=== PATIENT | female | born 1965 | race Caucasian/White ===

== ENCOUNTER → 2016-11-03 | Outpatient (CLI) | payer MEDICARE, MEDICAID ==
--- NOTE | 2016-11-03 09:53 | RAD ---
Left knee three views INDICATION: Knee pain IMPRESSION: Small tibial spine osteophytes. No evidence of acute fracture or destructive process. There is a moderate to large suprapatellar effusion. Mild to moderate patellofemoral osteophyte formation. The fluid suggests internal derangement but is nonspecific. Electronically signed by: Matteo Hills MD 11/03/2016 9:52 AM LEG MAN
--- NOTE | 2016-11-03 09:56 | RAD ---
Pelvis one view INDICATION: Hip pain IMPRESSION: Mild osteoarthrosis of the hips. No evidence of fracture or dislocation. Mild degenerative osteoarthrosis of the sacroiliac joints. No evidence of sacral fracture. Electronically signed by: Matteo Hills MD 11/03/2016 9:55 AM PRINTER ASSISTANT
== END | disposition home or self-care (01) ==
LOC: RAD 09:01
PROVIDERS: ATTEND Orthopaedic Surgery
DX: M25.562 Pain in left knee (principal)

== ENCOUNTER 2016-11-09 14:13 | Emergency (ER) | payer MEDICARE, MEDICAID ==
[2016-11-09] MEDS ORDERED: HALOPERIDOL LACTATE INJ 5 MG/ML VIAL IM ONE (14:23)
[2016-11-09 14:25] VITALS: TEMP 98.1
[2016-11-09] MEDS ORDERED: diphenhydrAMINE HCL 50 MG/ML VIAL IM ONE (14:28)
[2016-11-09] MEDS ORDERED: LACTATED RINGERS 1,000 ML IVS ONE (15:03)
--- NOTE | 2016-11-09 15:54 | CT ---
PROCEDURE: CT of the head without contrast HISTORY: ams Indication: Same as above Comparison: 04/02/2016 Technique: CT of the head was done without intravenous contrast was done in the axial planes only. FINDINGS: There is no intracranial hemorrhage, midline shift mass effect or acute focal infarct. Motion artifact is seen on the current study If clinical concern exists regarding an acute ischemic/vascular pathology being responsible for patient's symptomatology, an MRI of the brain is more sensitive than the current study, in ruling out such a possibility. There is good alcaraz/white matter differentiation. The ventricular system is normal. The mastoid air cells are unremarkable . The paranasal sinuses are unremarkable . There is no visualization of acute fractures involving the calvarium or the skull base. IMPRESSION: There is no acute intracranial abnormality, given the limitation of motion artifact on the current study. Electronically signed by: Obinna Mayo MD 11/09/2016 3:54 PM PUBLIC FINANCE SPECIALIST
--- NOTE | 2016-11-09 17:50 | ED.PDOC ---
History of Present Illness - General Source: patient Exam Limitations: no limitations - History of Present Illness Initial Comments: The patient is a 51-year-old female with a long-standing history of bipolar disorder. The patient is brought in by police secondary to abnormal behavior with the patient. The please seen her twice earlier in the day and her behavior Becoming more and more bizarre. The patient has apparently gone off of her psychiatric medications. She does have a history history of bipolar disorder with schizophrenic-type features. The patient upon arrival here she is repeating a prayer over and over and over again. She can be distracted to answer simple simple yes or no questions fairly appropriately. She does not appear to be any distress. She does have a contusion surrounding her left eye that looks to be at least a day or 2 old. She is not reporting pain anywhere. She appears to be able to move all her extremities well. She is articulating the prayer well. I can find no evidence of any other head trauma. She said that she fell and that is how she got her black eye. The patient is not belligerent. She did resist police some. Timing/Duration: 24 hours Severity: severe Improving Factors: nothing Worsening Factors: nothing Associated Symptoms: denies symptoms <Angus Murphy - Last Filed: 11/09/16 17:48> <Kate Do - Last Filed: 11/09/16 23:19> - General Chief Complaint: Behavioral / Psych Stated Complaint: altered mental status Time Seen by Provider: 11/09/16 14:14 - History of Present Illness Allergies/Adverse Reactions: Allergies NO KNOWN ALLERGY Allergy (Verified 11/09/16 14:25) Home Medications: Ambulatory Orders Citalopram Hydrobromide [Celexa] 40 mg PO DAILY 11/01/15 Estrogens, Conjugated [Premarin] 1.25 mg PO DAILY 11/01/15 Fluticasone Prop 0.05% Nasal [Flonase Nasal [place]] 1 each KAREEN PRN 11/01/15 Gabapentin [Neurontin] 600 mg PO BID 11/01/15 Omeprazole [PriLOSEC Cap] 20 mg PO DAILY 11/01/15 Pantoprazole Sodium [Protonix] 40 mg PO DAILY 11/01/15 Topiramate [Topamax] 50 mg PO DAILY 11/01/15 Review of Systems - Review of Systems Review of Systems: 11/09/16 17:50 review of systems is limited due to patient's initial attention span. She is able to get more details at a later interview after the Haldol. Constitutional: States: malaise EENTM: States: eye pain - surrounding the left eye Respiratory: States: no symptoms reported Cardiology: States: no symptoms reported Gastrointestinal/Abdominal: States: no symptoms reported Genitourinary: States: no symptoms reported Musculoskeletal: States: no symptoms reported Skin: States: no symptoms reported Neurological: States: anxiety, other - she has also been having poor sleep Endocrine: States: no symptoms reported <Angus Murphy - Last Filed: 11/09/16 17:48> Past Medical History (General) - Patient Medical History Hx Seizures: No Hx Stroke: No Hx Dementia: No Hx Asthma: No Hx of COPD: Yes Hx Cardiac Disorders: No Hx Congestive Heart Failure: No Hx Pacemaker: No Hx Hypertension: No Hx Thyroid Disease: No Hx Diabetes: No Hx Gastroesophageal Reflux: No Hx Renal Disease: No Hx Cancer: Yes - skin Hx of HIV: No Hx Hepatitis C: No Hx MRSA: Yes - 2015 MRSA Source:: Wound - Vaccination History Hx Tetanus, Diphtheria Vaccination: Yes Hx Influenza Vaccination: Yes Hx Pneumococcal Vaccination: Yes - Social History Hx Tobacco Use: Yes Hx Chewing Tobacco Use: No Hx Alcohol Use: No Hx Substance Use: No Hx Substance Use Treatment: No Hx Depression: Yes - Female History Patient : No <Angus Murphy - Last Filed: 11/09/16 17:48> Family Medical History - Family History Mother Family History: No Known Living Status: Still Living <Angus Murphy - Last Filed: 11/09/16 17:48> Physical Exam - Physical Exam General Appearance: Alert, Anxious, No apparent distress Eye Exam: bilateral normal - periorbital hematoma on the left Ears, Nose, Throat: hearing grossly normal, normal ENT inspection - mucous membranes are mildly dry Neck: non-tender, full range of motion, supple Respiratory: chest non-tender, lungs clear, normal breath sounds, no respiratory distress, no accessory muscle use Cardiovascular/Chest: normal peripheral pulses, no edema, other - regular rate but tachycardic Peripheral Pulses: radial,right: 2+, radial,left: 2+, dorsalis pedis,right: 2+, dorsalis pedis,left: 2+ Gastrointestinal/Abdominal: non tender, soft Rectal Exam: deferred Back Exam: normal inspection, no CVA tenderness, no vertebral tenderness Extremity: normal range of motion, non-tender, normal inspection, no pedal edema , normal capillary refill Neurologic: marketing director II-XII nml as tested, no motor/sensory deficits, alert Skin Exam: normal color - with the exception of the bruising as stated above. Comments: Vital Signs - 24 hr 11/09/16 14:23 Temperature 98.1 F Pulse Rate [ 120 H Right Radial] Respiratory 22 Rate Blood Pressure 147/92 [Right Arm] O2 Sat by Pulse 96 Oximetry <Angus Murphy - Last Filed: 11/09/16 17:48> Progress - Progress Progress: 11/09/16 17:53 the patient is a 51-year-old female with a history of bipolar disorder presenting with what appears to be a manic state with schizophrenic features. She is obviously not taking care of herself. She is significantly dehydrated and in mild rhabdomyolysis. The patient is receiving IV fluids. She has responded very well to a dose of Haldol and Ativan. She will now converse fairly normally with you. She is telling us that she's been off of her medications for a month or so. I'm unsure if this is true or not. We will contact [facility] for an evaluation. We will also give her a dose of her Topamax back that we have on her previous medication list. - Results/Orders Results/Orders: Laboratory Tests 11/09/16 11/09/16 15:01 15:02 WBC 13.1 H RBC 4.59 Hgb 14.4 Hct 42.8 MCV 93.3 MCH 31.3 H MCHC 33.6 RDW 13.5 Plt Count 232 MPV 8.7 Absolute Neuts (auto) 8.60 H Absolute Lymphs (auto) 3.20 Absolute Monos (auto) 1.20 H Absolute Eos (auto) 0.00 Absolute Basos (auto) 0.10 Neutrophils % 65.5 Lymphocytes % 24.6 Monocytes % 9.2 H Eosinophils % 0.3 L Basophils % 0.4 Sodium 142 Potassium 3.9 Chloride 106 Carbon Dioxide 25 Anion Gap 14.9 BUN 11 Creatinine 0.69 BUN/Creatinine Ratio 15.9 Random Glucose 93 Serum Osmolality 282.2 Calcium 9.5 Total Bilirubin 1.2 H AST 52 H ALT 27 Alkaline Phosphatase 104 Creatine Kinase 386 H* CK-MB (CK-2) 11.4 H* CK-MB (CK-2) % 2.95 Troponin I 0.03 Serum Total Protein 7.6 Albumin 3.8 Globulin 3.8 H Albumin/Globulin Ratio 1.0 L Serum HCG, Qual Negative head CT shows no evidence of any acute pathology. Urinalysis is still pending at this time. <Angus Murphy - Last Filed: 11/09/16 17:48> - Progress Progress: 11/09/16 23:16 [facility] determined Patient was not a threat to herself or others. She was monitored for quite some time and was stable throughout the rest of her stay. Her roommate was contacted and will come to pick her up. [facility] <Kate Do - Last Filed: 11/09/16 23:19> Departure <Angus Murphy - Last Filed: 11/09/16 17:48> - Departure Time of Disposition: 23:18 Diet: resume usual diet <Kate Do - Last Filed: 11/09/16 23:19> - Departure Clinical Impression: Bipolar 1 disorder with moderate dayan, Schizophrenia, acute Disposition: Discharge to Home or Self Care Condition: Good Departure Forms: ED Discharge - Pt. Copy, Patient Portal Self Enrollment Instructions: DI for Bipolar Disorder Referrals: Michael Murphy MD [Primary Care Provider] - 1-5 Days Home Medications: Ambulatory Orders Citalopram Hydrobromide [Celexa] 40 mg PO DAILY 11/01/15 Estrogens, Conjugated [Premarin] 1.25 mg PO DAILY 11/01/15 Fluticasone Prop 0.05% Nasal [Flonase Nasal [place]] 1 each KAREEN PRN 11/01/15 Gabapentin [Neurontin] 600 mg PO BID 11/01/15 Omeprazole [PriLOSEC Cap] 20 mg PO DAILY 11/01/15 Pantoprazole Sodium [Protonix] 40 mg PO DAILY 11/01/15 Topiramate [Topamax] 50 mg PO DAILY 11/01/15 Additional Instructions: Arrange appointment with [facility].
[2016-11-09] MEDS ORDERED: TOPIRAMATE 25 MG TAB PO ONE (18:12)
[2016-11-09 23:46] VITALS: BP 146/81; O2SAT 96
== END 2016-11-09 23:45 | disposition home or self-care (01) ==
LOC: ER 14:13
DX: F31.2 Bipolar disorder, current episode manic severe with psychotic features (principal); F23 Brief psychotic disorder; Z85.828 Personal history of other malignant neoplasm of skin; Z86.14 Personal history of Methicillin resistant Staphylococcus aureus infection; Z87.891 Personal history of nicotine dependence; Z91.14 Patient's other noncompliance with medication regimen; E86.0 Dehydration; M62.82 Rhabdomyolysis
CPT/HCPCS: 36415; 70450; 80053; 80307; 82550; 82553; 84484; 84703; 85025; J1200; J1630; J2060; J7120

== ENCOUNTER → 2016-11-12 | Outpatient (CLI) | payer MEDICARE, MEDICAID ==
--- NOTE | 2016-11-12 09:07 | RAD ---
EXAM DESCRIPTION: Knee,Right Complete CLINICAL HISTORY: PAIN IN RIGHT KNEE FINDINGS/ IMPRESSION: No fracture or focal osteochondral lesion. Small tricompartmental joint line osteophytes. No joint effusion. Electronically signed by: Michael Crowder MD 11/12/2016 9:06 AM CORSET MAKER
== END | disposition home or self-care (01) ==
LOC: RAD 08:12
PROVIDERS: ATTEND Family Medicine
DX: M25.561 Pain in right knee (principal)

== ENCOUNTER 2016-11-16 17:32 | Emergency (ER) | payer MEDICARE, MEDICAID | END 2016-11-16 18:17 | disposition left against medical advice (07) | LOC: ER 17:32 | DX: Z53.21 Procedure and treatment not carried out due to patient leaving prior to being seen by health care provider (principal) ==

== ENCOUNTER 2016-11-16 22:06 | Emergency (ER) | payer MEDICARE, MEDICAID ==
[2016-11-16 23:30] VITALS: TEMP 97.2; O2SAT 96
[2016-11-17] MEDS ORDERED: LIDOCAINE 1% 10 ML VIAL INJ ONE (00:45)
[2016-11-17] MEDS ORDERED: BACITRACIN-POLYMYXIN B OINT U/D PACK TOP ONE (00:52)
--- NOTE | 2016-11-17 01:02 | ED.PDOC ---
History of Present Illness - General Chief Complaint: Skin/Abrasion/Tear Stated Complaint: abcess to rt axilla Time Seen by Provider: 11/17/16 00:59 Source: patient Exam Limitations: no limitations - History of Present Illness Initial Comments: Jc 51 y/o female had worsening painful swelling on her right axilla started 3 days ago. Timing/Duration: getting worse - 72 hours, other Severity: moderate Location: extremities Improving Factors: nothing Worsening Factors: movement Associated Symptoms: denies symptoms Allergies/Adverse Reactions: Allergies NO KNOWN ALLERGY Allergy (Verified 11/09/16 14:25) Home Medications: Ambulatory Orders Citalopram Hydrobromide [Celexa] 40 mg PO DAILY 11/01/15 Estrogens, Conjugated [Premarin] 1.25 mg PO DAILY 11/01/15 Fluticasone Prop 0.05% Nasal [Flonase Nasal [place]] 1 each KAREEN PRN 11/01/15 Gabapentin [Neurontin] 600 mg PO BID 11/01/15 Omeprazole [PriLOSEC Cap] 20 mg PO DAILY 11/01/15 Pantoprazole Sodium [Protonix] 40 mg PO DAILY 11/01/15 Topiramate [Topamax] 50 mg PO DAILY 11/01/15 Clindamycin HCl 300 mg PO BID #30 cap 11/17/16 Review of Systems - Review of Systems Constitutional: States: no symptoms reported EENTM: States: no symptoms reported Respiratory: States: no symptoms reported Cardiology: States: no symptoms reported Gastrointestinal/Abdominal: States: no symptoms reported Genitourinary: States: no symptoms reported Musculoskeletal: States: no symptoms reported Skin: States: see HPI Neurological: States: no symptoms reported Endocrine: States: no symptoms reported Hematologic/Lymphatic: States: no symptoms reported Past Medical History (General) - Patient Medical History Hx Seizures: No Hx Stroke: No Hx Dementia: No Hx Asthma: No Hx of COPD: Yes Hx Cardiac Disorders: No Hx Congestive Heart Failure: No Hx Pacemaker: No Hx Hypertension: No Hx Thyroid Disease: No Hx Diabetes: No Hx Gastroesophageal Reflux: No Hx Renal Disease: No Hx Cancer: Yes - skin, cervical Hx of HIV: No Hx Hepatitis C: Yes Hx MRSA: Yes - 2014 MRSA Source:: Wound Surgical History: colectomy, other - hysterectomy - Vaccination History Hx Tetanus, Diphtheria Vaccination: Yes Hx Influenza Vaccination: Yes Hx Pneumococcal Vaccination: Yes - Social History Hx Tobacco Use: Yes Hx Chewing Tobacco Use: No Hx Alcohol Use: No 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 Hx Substance Use Treatment: Yes Hx Depression: Yes - Female History Patient is a Female of Child Bearing Age (10 -59 yrs old): No Patient : No Family Medical History - Family History Mother Family History: No Known Living Status: Still Living Hx Family Hypertension: Yes Hx Family Cancer: Yes - multiple family member with melanoma Physical Exam - Physical Exam General Appearance: Alert, No apparent distress Eyes, Ears, Nose, Throat Exam: PERRL/EOMI, normal ENT inspection, pharynx normal Neck: non-tender, full range of motion, supple, normal inspection Cardiovascular/Chest: normal peripheral pulses, regular rate, rhythm, no edema Respiratory: chest non-tender, lungs clear, normal breath sounds, no respiratory distress Gastrointestinal/Abdominal: normal bowel sounds, non tender, soft Extremity: normal range of motion, non-tender, normal inspection Neurologic: no motor/sensory deficits, alert, oriented x 3 Skin Exam: warm/dry, normal color Skin Problem Location: other - axilla right Skin Character: abscess - right axilla, erythema, swelling - 3cmx2.5cm, tenderness Procedures - Incision and Drainage #1 Site: right axilla Procedure and Prep: betadine prep, sterile drapes applied, sterile dressings applied, irrigated, pus drained Blade Size: 11 Departure - Departure Clinical Impression: Axillary abscess Time of Disposition: 01:08 Disposition: Discharge to Home or Self Care Condition: Good Departure Forms: ED Discharge - Pt. Copy, Patient Portal Self Enrollment Instructions: DI for Incision and Drainage of a Skin Abscess, DI for Skin Abscess Referrals: Michael Murphy MD [Primary Care Provider] - 1-2 Weeks Prescriptions: Clindamycin HCl 300 mg PO BID #30 cap Home Medications: Ambulatory Orders Citalopram Hydrobromide [Celexa] 40 mg PO DAILY 11/01/15 Estrogens, Conjugated [Premarin] 1.25 mg PO DAILY 11/01/15 Fluticasone Prop 0.05% Nasal [Flonase Nasal [place]] 1 each KAREEN PRN 11/01/15 Gabapentin [Neurontin] 600 mg PO BID 11/01/15 Omeprazole [PriLOSEC Cap] 20 mg PO DAILY 11/01/15 Pantoprazole Sodium [Protonix] 40 mg PO DAILY 11/01/15 Topiramate [Topamax] 50 mg PO DAILY 11/01/15 Clindamycin HCl 300 mg PO BID #30 cap 11/17/16
[2016-11-17] MEDS ORDERED: CLINDAMYCIN HCL CAP 150 MG CAP PO ONE (01:11)
[2016-11-17 01:38] VITALS: BP 112/68
== END 2016-11-17 01:40 | disposition home or self-care (01) ==
LOC: ER 22:06
DX: L02.411 Cutaneous abscess of right axilla (principal); J44.9 Chronic obstructive pulmonary disease, unspecified; Z87.891 Personal history of nicotine dependence; Z87.898 Personal history of other specified conditions; Z79.899 Other long term (current) drug therapy; Z85.41 Personal history of malignant neoplasm of cervix uteri; Z86.19 Personal history of other infectious and parasitic diseases; Z86.14 Personal history of Methicillin resistant Staphylococcus aureus infection

== ENCOUNTER 2016-11-18 11:49 | Emergency (ER) | payer MEDICARE, MEDICAID ==
[2016-11-18 12:11] VITALS: TEMP 98
--- NOTE | 2016-11-18 12:39 | ED.PDOC ---
History of Present Illness - General Chief Complaint: Abdominal Pain Stated Complaint: abdominal pain Time Seen by Provider: 11/18/16 12:15 Source: patient Exam Limitations: no limitations - History of Present Illness Initial Comments: Patient presents complaining of unusual taste in her mouth and abdominal pain. She says the taste is sour. She has recently been treated for constipation after not having a bowel movement for 5 days. She had a bowel movement today. She says her appetite has been fine but has not eaten today. Abdominal pain is RUQ with no radiation. Intermittent. Cramping in nature. Started today. Has had previous episodes. She is unsure if it is associated with bowel movements. Mild nausea with no vomiting. No urinary complaints. Timing/Duration: 4-6 hours Severity: mild Improving Factors: nothing Worsening Factors: nothing Associated Symptoms: denies symptoms Allergies/Adverse Reactions: Allergies NO KNOWN ALLERGY Allergy (Verified 11/18/16 12:11) Home Medications: Ambulatory Orders Citalopram Hydrobromide [Celexa] 40 mg PO DAILY 11/01/15 Estrogens, Conjugated [Premarin] 1.25 mg PO DAILY 11/01/15 Fluticasone Prop 0.05% Nasal [Flonase Nasal [place]] 1 each KAREEN PRN 11/01/15 Gabapentin [Neurontin] 600 mg PO BID 11/01/15 Omeprazole [PriLOSEC Cap] 20 mg PO DAILY 11/01/15 Pantoprazole Sodium [Protonix] 40 mg PO DAILY 11/01/15 Topiramate [Topamax] 50 mg PO DAILY 11/01/15 Clindamycin HCl 300 mg PO BID #30 cap 11/17/16 Review of Systems - Review of Systems Constitutional: States: no symptoms reported EENTM: States: no symptoms reported Respiratory: States: no symptoms reported Cardiology: States: no symptoms reported Gastrointestinal/Abdominal: States: see HPI Genitourinary: States: no symptoms reported Musculoskeletal: States: no symptoms reported Skin: States: no symptoms reported Neurological: States: no symptoms reported Endocrine: States: no symptoms reported Hematologic/Lymphatic: States: no symptoms reported Past Medical History (General) - Patient Medical History Hx Seizures: No Hx Stroke: No Hx Dementia: No Hx Asthma: No Hx of COPD: Yes Hx Cardiac Disorders: No Hx Congestive Heart Failure: No Hx Pacemaker: No Hx Hypertension: No Hx Thyroid Disease: No Hx Diabetes: No Hx Gastroesophageal Reflux: No Hx Renal Disease: No Hx Cancer: Yes - skin, cervical Hx of HIV: No Hx Hepatitis C: Yes Hx MRSA: Yes - 2014 MRSA Source:: Wound Surgical History: appendectomy, Hysterectomy - Vaccination History Hx Tetanus, Diphtheria Vaccination: Yes Hx Influenza Vaccination: Yes Hx Pneumococcal Vaccination: Yes - Social History Hx Tobacco Use: Yes Hx Chewing Tobacco Use: No Hx Alcohol Use: No 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 Hx Substance Use Treatment: Yes Hx Depression: Yes - Activities of Daily Living Hospice Agency (if applicable):: None - Female History Patient is a Female of Child Bearing Age (10 -59 yrs old): No Patient : No Family Medical History - Family History Mother Family History: No Known Living Status: Still Living Hx Family Hypertension: Yes Hx Family Cancer: Yes - multiple family member with melanoma Physical Exam - Physical Exam General Appearance: Alert Eye Exam: bilateral normal Ears, Nose, Throat: normal ENT inspection Neck: non-tender, full range of motion, supple Respiratory: lungs clear Cardiovascular/Chest: regular rate, rhythm Gastrointestinal/Abdominal: normal bowel sounds, non tender, soft Back Exam: no CVA tenderness Extremity: normal range of motion, non-tender, normal inspection Skin Exam: normal color Lymphatic: no adenopathy Progress - Progress Progress: 11/18/16 15:[address] abdomen/pelvis was unremarkable and suggestive of a diarrheal state. Laboratory Tests 11/18/16 11/18/16 13:00 14:40 WBC 12.6 H RBC 5.08 Hgb 16.1 H Hct 47.8 H MCV 94.0 MCH 31.6 H MCHC 33.8 RDW 13.4 Plt Count 298 MPV 8.7 Absolute Neuts (auto) 9.30 H Absolute Lymphs (auto) 2.50 Absolute Monos (auto) 0.60 Absolute Eos (auto) 0.10 Absolute Basos (auto) 0.00 Neutrophils % 73.6 Lymphocytes % 20.3 Monocytes % 5.1 Eosinophils % 0.8 L Basophils % 0.2 Sodium 140 Potassium 4.1 Chloride 105 Carbon Dioxide 27 Anion Gap 12.1 BUN 10 Creatinine 0.58 L BUN/Creatinine Ratio 17.2 Random Glucose 114 H Serum Osmolality 279.3 Lactic Acid 0.9 Calcium 9.7 Total Bilirubin 0.9 AST 53 H ALT 36 Alkaline Phosphatase 118 Creatine Kinase 97 CK-MB (CK-2) 4.8 H* CK-MB (CK-2) % Not Reportable Troponin I < 0.02 B-Natriuretic Peptide 17.1 Serum Total Protein 8.6 H Albumin 4.2 Globulin 4.4 H Albumin/Globulin Ratio 1.0 L Lipase 23 Urine Color Yellow Urine Appearance Sl cloudy Urine pH 6.0 Ur Specific [place] 1.010 Urine Protein Negative Urine Glucose (UA) Negative Urine Ketones Negative Urine Blood Negative Urine Nitrite Negative Urine Bilirubin Negative Urine Urobilinogen 0.2 Ur Leukocyte Esterase Negative Urine RBC 0 Urine WBC 0 Ur Epithelial Cells 0 Urine Bacteria 0 11/18/16 15:36 Likely diarrhea due to acute treatment of her constipation. Recommend increasing oral fluids. Departure - Departure Clinical Impression: Diarrhea Disposition: Discharge to Home or Self Care Condition: Good Departure Forms: ED Discharge - Pt. Copy, Patient Portal Self Enrollment Instructions: DI for Abdominal Pain-Adult Diet: resume usual diet Activity: increase activity as tolerated Home Medications: Ambulatory Orders Citalopram Hydrobromide [Celexa] 40 mg PO DAILY 11/01/15 Estrogens, Conjugated [Premarin] 1.25 mg PO DAILY 11/01/15 Fluticasone Prop 0.05% Nasal [Flonase Nasal [place]] 1 each KAREEN PRN 11/01/15 Gabapentin [Neurontin] 600 mg PO BID 11/01/15 Omeprazole [PriLOSEC Cap] 20 mg PO DAILY 11/01/15 Pantoprazole Sodium [Protonix] 40 mg PO DAILY 11/01/15 Topiramate [Topamax] 50 mg PO DAILY 11/01/15 Clindamycin HCl 300 mg PO BID #30 cap 11/17/16 Additional Instructions: Increase oral fluids.
--- NOTE | 2016-11-18 14:19 | CT ---
Study: CT abdomen and pelvis. Indication: abdominal pain Technique: Venous phase CT imaging of the abdomen and pelvis obtained after intravenous administration of contrast. Comparison: None. Findings: Gallbladder is distended. No radiopaque stones. Lower chest, liver, pancreas, adrenal glands, kidneys, bladder unremarkable. Uterus and ovaries are either small or surgically absent. Prior splenectomy. Nonvisualization appendix. Scattered fluid noted throughout the stomach, small bowel, and colon without definitive site of obstruction or significant dilatation of the bowel. No free fluid. No free air. No pathologically enlarged abdominal or pelvic lymphadenopathy. Atherosclerosis abdominal aorta. Degenerative changes of the spine noted. Impression: No CT evidence of acute abdominal or pelvic process. Distended gallbladder. Right upper quadrant sonogram could better evaluate as clinically indicated. Fluid noted throughout the bowel which can be seen with a diarrheal state. No sign of obstruction. Additional findings as above. Electronically signed by: Alireza Canales MD 11/18/2016 2:18 PM CDT
[2016-11-18 14:34] VITALS: O2SAT 95
[2016-11-18 15:46] VITALS: BP 115/70
== END 2016-11-18 15:46 | disposition home or self-care (01) ==
LOC: ER 11:49
DX: R19.7 Diarrhea, unspecified (principal); J44.9 Chronic obstructive pulmonary disease, unspecified; F32.9 Major depressive disorder, single episode, unspecified; Z87.891 Personal history of nicotine dependence; Z87.898 Personal history of other specified conditions; Z79.899 Other long term (current) drug therapy; Z85.41 Personal history of malignant neoplasm of cervix uteri; Z85.828 Personal history of other malignant neoplasm of skin; Z86.19 Personal history of other infectious and parasitic diseases; Z86.14 Personal history of Methicillin resistant Staphylococcus aureus infection

== ENCOUNTER → 2016-11-28 | Outpatient (CLI) | payer MEDICARE, MEDICAID | END | disposition home or self-care (01) | LOC: GMAM 13:26 | PROVIDERS: ATTEND Family Medicine | DX: R60.0 Localized edema (principal); F31.12 Bipolar disorder, current episode manic without psychotic features, moderate ==

== ENCOUNTER → 2016-12-17 | Outpatient (CLI) | payer MEDICARE, MEDICAID | LOC: LAB.O 13:10 | PROVIDERS: ATTEND Internal Medicine Gastroenterology | DX: B18.2 Chronic viral hepatitis C (principal); R74.0 Nonspecific elevation of levels of transaminase and lactic acid dehydrogenase [LDH] ==

== ENCOUNTER → 2016-12-29 | Outpatient (CLI) | payer MEDICARE, MEDICAID ==
--- NOTE | 2016-12-29 11:59 | US ---
EXAM DESCRIPTION: Abdomen,Complete CLINICAL HISTORY: CHRONIC HEP C COMPARISON: None available. FINDINGS: Aorta: Nonaneurysmal. IVC: Visualized portions normal. Ascites: None. Pancreas: Partially obscured by overlying bowel gas but visualized portions normal. Liver: The liver appears slightly heterogeneous, but there is no mass, hepatomegaly or biliary duct dilation. Physiologic flow is noted in the main portal vein. Gallbladder/Common Duct: There is no gallstone, gallbladder wall thickening or pericholecystic fluid. There is a questionable 3 or 4 mm gallbladder polyp. The common duct is not dilated, measuring 5 mm diameter at the buddy habitus. Right Kidney: No stones, hydronephrosis, atrophy or mass. Spleen: The spleen is not identified and is, by history, surgically absent. Left Kidney: No stones, hydronephrosis, atrophy or mass. IMPRESSION: Slightly heterogeneous appearance of the liver, but no liver mass, ascites or other complication related to provided history of chronic hepatitis C. 3 or 4 mm gallbladder polyp of questionable clinical significance, otherwise unremarkable exam. Electronically signed by: Luis Miguel Ha MD 12/29/2016 11:58 AM CDT
== END | disposition home or self-care (01) ==
LOC: US 08:07
PROVIDERS: ATTEND Internal Medicine Gastroenterology
DX: B18.2 Chronic viral hepatitis C (principal)

== ENCOUNTER 2017-01-10 10:02 | Emergency (ER) | payer MEDICARE, MEDICAID ==
[2017-01-10 10:14] VITALS: BP 113/86; TEMP 97.5; O2SAT 96
[2017-01-10] MEDS ORDERED: SULFA/TRIMETH 800/160 (DS) TAB 1 EA TAB PO ONE (10:15)
--- NOTE | 2017-01-10 10:18 | ED.PDOC ---
History of Present Illness - General Chief Complaint: Skin/Abrasion/Tear Stated Complaint: sore to top of right hand Time Seen by Provider: 01/10/17 10:08 Source: patient, RN notes reviewed, Vital Signs reviewed Exam Limitations: no limitations - History of Present Illness Initial Comments: Patient reports sore on the back of her R hand that started as a pimple yesterday. She tried draining it with a needle. Today the pimple has expanded and she had redness and pain around the site. Reports multiple infections with Staph in the past. No fever or chills. Pain with movement of fingers/hand but has full range of motion. Timing/Duration: yesterday Severity: mild Location: hands Improving Factors: nothing Worsening Factors: movement Associated Symptoms: blisters Allergies/Adverse Reactions: Allergies NO KNOWN ALLERGY Allergy (Verified 11/18/16 12:11) Home Medications: Ambulatory Orders Citalopram Hydrobromide [Celexa] 40 mg PO DAILY 11/01/15 Estrogens, Conjugated [Premarin] 1.25 mg PO DAILY 11/01/15 Celecoxib [CeleBREX] 100 mg PO BID 01/10/17 HYDROcodone 7.5MG/APAP 325MG [[place] 7.5/325] 1 tab PO PRN 01/10/17 Ondansetron [Zofran Odt] 4 mg PO PRN 01/10/17 Sulfa/Trimeth 800/160 (Ds) Tab [Bactrim DS Tab] 1 ea PO BID #14 tab 01/10/17 Tizanidine HCl [Zanaflex] 4 mg PO TID 01/10/17 Review of Systems - Review of Systems Constitutional: States: no symptoms reported EENTM: States: no symptoms reported Respiratory: States: no symptoms reported Cardiology: States: no symptoms reported Gastrointestinal/Abdominal: States: no symptoms reported Skin: States: see HPI Neurological: States: no symptoms reported All other Systems: No Change from Baseline Past Medical History (General) - Patient Medical History Hx Seizures: No Hx Stroke: No Hx Dementia: No Hx Asthma: No Hx of COPD: Yes Hx Cardiac Disorders: No Hx Congestive Heart Failure: No Hx Pacemaker: No Hx Hypertension: No Hx Thyroid Disease: No Hx Diabetes: No Hx Gastroesophageal Reflux: No Hx Renal Disease: No Hx Cancer: Yes - skin, cervical Hx of HIV: No Hx Hepatitis C: Yes Hx MRSA: Yes - 2014 MRSA Source:: Wound - Vaccination History Hx Tetanus, Diphtheria Vaccination: Yes Hx Influenza Vaccination: Yes Hx Pneumococcal Vaccination: Yes - Social History Hx Tobacco Use: Yes Hx Chewing Tobacco Use: No Hx Alcohol Use: No 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 Hx Substance Use Treatment: Yes Hx Depression: Yes - Female History Patient : No Family Medical History - Family History Mother Family History: No Known Living Status: Still Living Hx Family Hypertension: Yes Hx Family Cancer: Yes - multiple family member with melanoma Physical Exam - Physical Exam General Appearance: Alert, Comfortable, No apparent distress, Well Developed, Well Groomed, Well Hydrated, Well Nourished Extremity: normal range of motion, non-tender, normal inspection Neurologic: no motor/sensory deficits, alert, normal mood/affect, oriented x 3 Skin Exam: warm/dry, normal color Skin Problem Location: upper extremities - Dorsum of R hand Skin Character: abscess, drainage - purulent drainage, erythema, tenderness, warm Comments: Vital Signs - 24 hr 01/10/17 10:10 Temperature 97.5 F L Pulse Rate [ 74 Left Brachial] Respiratory 16 Rate Blood Pressure 113/86 [Left Arm] O2 Sat by Pulse 96 Oximetry Departure - Departure Clinical Impression: Cellulitis Qualifiers: Site of cellulitis: extremity Site of cellulitis of extremity: upper extremity Laterality: right Qualified Code(s): L03.113 - Cellulitis of right upper limb Time of Disposition: 10:21 Disposition: Discharge to Home or Self Care Condition: Good Departure Forms: ED Discharge - Pt. Copy, Patient Portal Self Enrollment Instructions: DI for Cellulitis -- Adult Diet: resume usual diet Activity: increase activity as tolerated Referrals: Michael Murphy MD [Primary Care Provider] - 1-2 Weeks Prescriptions: Sulfa/Trimeth 800/160 (Ds) Tab [Bactrim DS Tab] 1 ea PO BID #14 tab Home Medications: Ambulatory Orders Citalopram Hydrobromide [Celexa] 40 mg PO DAILY 11/01/15 Estrogens, Conjugated [Premarin] 1.25 mg PO DAILY 11/01/15 Celecoxib [CeleBREX] 100 mg PO BID 01/10/17 HYDROcodone 7.5MG/APAP 325MG [[place] 7.5/325] 1 tab PO PRN 01/10/17 Ondansetron [Zofran Odt] 4 mg PO PRN 01/10/17 Sulfa/Trimeth 800/160 (Ds) Tab [Bactrim DS Tab] 1 ea PO BID #14 tab 01/10/17 Tizanidine HCl [Zanaflex] 4 mg PO TID 01/10/17 Additional Instructions: Hot compresses 3-5X/day
== END 2017-01-10 10:32 | disposition home or self-care (01) ==
LOC: ER 10:02
DX: L03.113 Cellulitis of right upper limb (principal); J44.9 Chronic obstructive pulmonary disease, unspecified; B19.20 Unspecified viral hepatitis C without hepatic coma; Z86.14 Personal history of Methicillin resistant Staphylococcus aureus infection; Z85.828 Personal history of other malignant neoplasm of skin; Z79.899 Other long term (current) drug therapy

== ENCOUNTER → 2017-02-26 | Outpatient (CLI) | payer MEDICARE, MEDICAID ==
--- NOTE | 2017-02-27 06:06 | CT ---
Procedure: CT ABDOMEN PELVIS WITHOUT IV CONTRAST Exam Date: 02/26/2017 Ordering Provider: Dave Estes Clinical Indication: Generalized abdominal pain Comparison: 11/18/2016 TECHNIQUE: Unenhanced 5 mm images were taken through the abdomen and pelvis without the administration of oral contrast material. Coronal and sagittal reformatted images were generated. This exam was performed according to our departmental dose optimization program which includes use of automated exposure control, adjustment of the mA and/or kV according to patient size and/or use of iterative reconstruction technique. FINDINGS: Lower chest: Nonacute Abdomen: Liver and biliary system: No gross liver lesions on this noncontrast examination. No biliary ductal dilatation. No calcified gallstones. Spleen: Surgically absent Pancreas: Unremarkable noncontrast appearance Adrenal glands: Unremarkable Kidneys: Unremarkable noncontrast appearance. No hydronephrosis in either kidney. Lymph nodes: No lymphadenopathy Retroperitoneum, peritoneal cavity, abdominal wall : No ascites. No free intraperitoneal air. Vessels: No abdominal aortic aneurysm. Pelvis: Lymph nodes: No lymphadenopathy Peritoneal cavity: No pelvic free fluid Bowel: No bowel obstruction. Appendix is not visualized. No secondary findings to suggest acute appendicitis. No bowel wall thickening. There are a few nonspecific air-fluid levels in the nondistended small bowel. Moderate to large stool burden in the proximal colon. Bladder: Unremarkable Pelvic organs: Prior hysterectomy. Bones: Nonacute. IMPRESSION: 1. No acute abnormalities in the abdomen or pelvis. 2. Moderate to large stool burden in the proximal colon. Electronically signed by: Last Shah MD 02/27/2017 6:05 AM CDT
== END | disposition home or self-care (01) ==
LOC: CT 09:12
PROVIDERS: ATTEND Internal Medicine Gastroenterology
DX: R10.84 Generalized abdominal pain (principal)

== ENCOUNTER → 2017-03-18 | Outpatient (CLI) | payer MEDICARE, MEDICAID | END | disposition home or self-care (01) | LOC: LAB.O 09:13 | PROVIDERS: ATTEND Internal Medicine Gastroenterology | DX: B18.2 Chronic viral hepatitis C (principal) ==

== ENCOUNTER → 2017-04-07 | Outpatient (CLI) | payer MEDICARE, MEDICAID | END | disposition home or self-care (01) | LOC: LAB 07:11 | PROVIDERS: ATTEND Internal Medicine Gastroenterology | DX: B18.2 Chronic viral hepatitis C (principal); R60.0 Localized edema; R73.09 Other abnormal glucose; Z13.6 Encounter for screening for cardiovascular disorders ==

== ENCOUNTER 2017-04-08 06:00 | Day surgery (SDC) | payer MEDICARE, MEDICAID ==
[2017-04-08] MEDS ORDERED: LACTATED RINGERS 1,000 ML ONE (06:05)
[2017-04-08 08:36] VITALS: O2SAT 100
--- NOTE | 2017-04-08 09:43 | OP ---
DATE OF PROCEDURE: 04/08/17 PREPROCEDURE DIAGNOSIS: 1. Average risk colorectal cancer screening. POSTPROCEDURE DIAGNOSIS: 1. Normal colon. PROCEDURE: 1. Colonoscopy. SURGEON: Dave Estes MD. SEDATION: Monitored anesthesia care. ESTIMATED BLOOD LOSS: 0 mL. PROCEDURE: Informed consent was obtained prior to sedation. The preprocedure cardiopulmonary assessment was satisfactory. The patient was brought to the Endoscopy Suite and placed in the left lateral decubitus position. The patient was then sedated by the anesthesia team. Digital rectal exam revealed no abnormalities. The tip of the Olympus colonoscope was inserted into the rectum and advanced under direct visualization to the cecum as identified by the presence of the appendiceal orifice and ileocecal valve. Preparation of the colon was adequate. Upon reaching the cecum, the endoscope was slowly withdrawn from the patient with careful attention paid to the entire colonic mucosa for the identification of any flat or small polyps. The entire colon appeared normal and there was no evidence of polyps. Retroflexed view of the rectum revealed no abnormalities. The endoscope was then withdrawn from the patient and the procedure terminated. RECOMMENDATION: 1. Discharge the patient home with escort. 2. Advance to regular diet. 3. Continue present medications. 4. Repeat colonoscopy in 10 years for screening purposes. [id number]
[2017-04-08] MEDS ORDERED: PROPOFOL 200 MG/20 ML VIAL IV ONE (10:00)
[2017-04-08 14:12] VITALS: TEMP 97
[2017-04-08 14:13] VITALS: BP 128/90
== END 2017-04-08 10:05 | disposition home or self-care (01) ==
LOC: AMB 06:00
PROVIDERS: ATTEND Internal Medicine Gastroenterology
DX: Z12.11 Encounter for screening for malignant neoplasm of colon (principal); B19.20 Unspecified viral hepatitis C without hepatic coma; E66.9 Obesity, unspecified; K21.9 Gastro-esophageal reflux disease without esophagitis; F17.210 Nicotine dependence, cigarettes, uncomplicated; Z68.29 Body mass index [BMI] 29.0-29.9, adult; Z79.899 Other long term (current) drug therapy
CPT/HCPCS: 00810; G0121; J3490; J7120

== ENCOUNTER → 2017-04-23 | Outpatient (CLI) | payer MEDICARE, MEDICAID | END | disposition home or self-care (01) | LOC: GMAM 16:25 | PROVIDERS: ATTEND Family Medicine | DX: Z79.899 Other long term (current) drug therapy (principal) ==

== ENCOUNTER → 2017-06-12 | Outpatient (CLI) | payer MEDICARE, MEDICAID | END | disposition home or self-care (01) | LOC: LAB.O 11:49 | PROVIDERS: ATTEND Internal Medicine Gastroenterology | DX: B18.2 Chronic viral hepatitis C (principal) ==

== ENCOUNTER → 2017-07-28 | Outpatient (CLI) | payer MEDICARE, MEDICAID ==
--- NOTE | 2017-07-30 02:15 | RAD ---
Examination: XR SHOULDER 2 OR MORE VIEWS dated 07/28/2017 8:52 AM SLACKMAN History: RIGHT SHOULDER PAIN Comparison: None Technique: Four views of the right shoulder FINDINGS AND IMPRESSION: There is no acute fracture or dislocation of the right shoulder. There are minimal degenerative changes of the glenohumeral joint. The acromioclavicular joint is unremarkable. The partially visualized right lung is clear. Electronically signed by: Michael Stanley MD 07/30/2017 2:13 AM SLACKMAN
== END | disposition home or self-care (01) ==
LOC: RAD 08:49
PROVIDERS: ATTEND Orthopaedic Surgery
DX: M25.511 Pain in right shoulder (principal)

== ENCOUNTER → 2017-09-22 | Outpatient (CLI) | payer MEDICARE, MEDICAID ==
--- NOTE | 2017-09-22 11:12 | MRI ---
Study: MRI of the Right Shoulder. Indication: SHOULDER JOINT PAIN Technique: Multiplanar, multi sequence MRI of the right shoulder was obtained without intravenous contrast. Comparison: None. Findings: Moderate hypertrophic AC joint osteoarthritis. Mild type II acromion with mild lateral downsloping. Trace subacromial/subdeltoid bursal fluid. Supraspinatus and infraspinatus tendinosis with subtle low-grade articular tearing throughout the insertional and critical zone fibers of the anterior and mid infraspinatus tendon. The involved area measures approximately 8 mm AP by 10 mm transverse and involves up to 40% expected tendon thickness. No full-thickness tear. No tendon retraction. Subscapularis and teres minor tendons intact. Rotator cuff musculature normal without atrophy, fatty infiltration, or intramuscular edema. Long head biceps tendon intact. Circumferential labral truncation/degeneration, most pronounced posteriorly. Minimal glenohumeral joint osteoarthritis. No acute fracture. Impression: Supraspinatus and infraspinatus tendinosis with subtle low-grade articular tearing throughout the insertional and critical zone fibers of the anterior and mid infraspinatus tendon. No full-thickness tear. Circumferential labral truncation/degeneration Minimal glenohumeral joint osteoarthritis. Moderate hypertrophic AC joint osteoarthritis. Electronically signed by: Alireza Canales MD 09/22/2017 11:11 AM PHYSICIAN AIDE
== END | disposition home or self-care (01) ==
LOC: MRI 08:00
PROVIDERS: ATTEND Orthopaedic Surgery
DX: M25.511 Pain in right shoulder (principal)

== ENCOUNTER 2017-11-07 20:59 | Emergency (ER) | payer MEDICARE, MEDICAID ==
[2017-11-07] MEDS ORDERED: ALUM & MAG HYDROX-SIMETHICONE 30 ML, LIDOCAINE VISCOUS 2% 15 ML PO ONE ×2 (21:12)
[2017-11-07] MEDS ORDERED: ONDANSETRON ODT 8 MG TAB SL ONE (21:12)
[2017-11-07] MEDS ORDERED: LIDOCAINE HCL 2% (MOUTH-THROAT) 15 ML UD ONE (21:21)
[2017-11-07] MEDS ORDERED: ALUM & MAG HYDROX-SIMETHICONE 30 ML UD ONE (21:21)
[2017-11-07 21:50] VITALS: O2SAT 97
--- NOTE | 2017-11-07 21:55 | RAD ---
Examination: XR ABDOMEN 2 VIEWS SUPINE ERECT dated 11/07/2017 9:13 PM TEXTILE TECHNICAL OFFICER History: n/v with hx of bowel obs in the past Comparison: CT abdomen 02/26/2017 Technique: Frontal view of the chest, abdomen, and pelvis FINDINGS: The lungs are clear bilaterally. No pneumothorax or pleural effusion. Unremarkable cardiac silhouette. No free air. Large amount of stool seen throughout the abdomen. No suspicious calcifications. Multiple pelvic phleboliths. No acute osseous abnormalities. IMPRESSION: Large amount of stool seen throughout the abdomen. Electronically signed by: Michael Stanley MD 11/07/2017 9:54 PM TEXTILE TECHNICAL OFFICER
[2017-11-07] MEDS ORDERED: MAGNESIUM HYDROXIDE 30 ML UD PO ONE (22:19)
--- NOTE | 2017-11-07 22:32 | ED.PDOC ---
History of Present Illness - General Chief Complaint: Abdominal Pain Stated Complaint: abd pain Time Seen by Provider: 11/07/17 21:12 Source: patient Exam Limitations: no limitations - History of Present Illness Initial Comments: the patient is a 52-year-old female presenting to the emergency room secondary to symptoms of abdominal pain primarily in the Epigastric area and left upper quadrant last 24 hours. Pain is intermittent and colicky. She has not had any diarrhea. No fevers. She has had some mild dry heaving. She does have a history of having some bowel issues in the past. No vomiting of feculent material. No vomiting of any material. No syncope or near syncope.the patient is definitely having an anxiety attack with this problem Timing/Duration: 24 hours Severity: moderate Improving Factors: nothing Worsening Factors: nothing Associated Symptoms: loss of appetite, malaise, nausea/vomiting Allergies/Adverse Reactions: Allergies NO KNOWN ALLERGY Allergy (Verified 11/18/16 12:11) Home Medications: Ambulatory Orders Citalopram Hydrobromide [Celexa] 40 mg PO DAILY 11/01/15 Estrogens, Conjugated [Premarin] 6.25 mg PO DAILY 11/01/15 Celecoxib [CeleBREX] 100 mg PO BID 01/10/17 HYDROcodone 7.5MG/APAP 325MG [[place] 7.5/325] 1 tab PO TID 01/10/17 Ondansetron [Zofran Odt] 4 mg PO PRN 01/10/17 Tizanidine HCl [Zanaflex] 4 mg PO TID 01/10/17 Review of Systems - Review of Systems Constitutional: States: no symptoms reported EENTM: States: no symptoms reported Respiratory: States: no symptoms reported Cardiology: States: no symptoms reported Gastrointestinal/Abdominal: States: abdominal pain, constipation, nausea Genitourinary: States: no symptoms reported Musculoskeletal: States: no symptoms reported Skin: States: no symptoms reported Neurological: States: no symptoms reported Endocrine: States: no symptoms reported All other Systems: No Change from Baseline Past Medical History (General) - Patient Medical History Hx Seizures: No Hx Stroke: No Hx Dementia: No Hx Asthma: No Hx of COPD: Yes Hx Cardiac Disorders: No Hx Congestive Heart Failure: No Hx Pacemaker: No Hx Hypertension: No Hx Thyroid Disease: Yes Hx Diabetes: Yes - "borderline" Hx Gastroesophageal Reflux: Yes - multiple bowel Sx Hx Renal Disease: No Hx Cancer: Yes - skin Hx of HIV: No Hx Hepatitis C: Yes Hx MRSA: Yes - 2014 MRSA Source:: Wound Surgical History: Hysterectomy, other - Vaccination History Hx Tetanus, Diphtheria Vaccination: Yes Hx Influenza Vaccination: Yes Hx Pneumococcal Vaccination: Yes - Social History Hx Tobacco Use: Yes Hx Chewing Tobacco Use: No Hx Alcohol Use: No 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 Hx Substance Use Treatment: Yes Hx Depression: Yes - Female History Patient is a Female of Child Bearing Age (10 -59 yrs old): No Patient : No Family Medical History - Family History Mother Family History: No Known Living Status: Still Living Hx Family Hypertension: Yes Hx Family Cancer: Yes - multiple family member with melanoma Physical Exam - Physical Exam General Appearance: Alert, Anxious Eye Exam: bilateral normal Ears, Nose, Throat: hearing grossly normal, normal ENT inspection, normal pharynx Neck: full range of motion, supple Respiratory: lungs clear, normal breath sounds, no respiratory distress, no accessory muscle use Cardiovascular/Chest: normal peripheral pulses, regular rate, rhythm, no edema Peripheral Pulses: radial,right: 2+, radial,left: 2+, dorsalis pedis,right: 2+, dorsalis pedis,left: 2+ Gastrointestinal/Abdominal: soft, other - mild epigastric and left upper quadrant discomfort to palpation Rectal Exam: deferred Back Exam: normal inspection, no CVA tenderness Extremity: normal range of motion, non-tender, normal inspection, no pedal edema , normal capillary refill Neurologic: gear room keeper II-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 She is likely having a mild gastritis probably related to the constipation and the NSAID use. She needs to continue her stomach medications. She can sweet pickled fruit maker some Maalox and use as needed as well. She was given a dose of milk of magnesia here. She needs to take MiraLAX daily for the next 2 weeks. She needs to increase her fluid intake. She needs to increase her fiber intake. She needs to follow up with her primary care doctor in 2 or 3 days. ER warnings were given for any significant worsening. - Results/Orders Results/Orders: Laboratory Tests 11/07/17 11/07/17 11/07/17 21:30 21:35 21:35 WBC 9.4 RBC 4.55 Hgb 14.6 Hct 42.8 MCV 94.0 MCH 32.2 H MCHC 34.2 RDW 13.7 Plt Count 253 MPV 8.7 Absolute Neuts (auto) Not Reportable Absolute Lymphs (auto) Not Reportable Absolute Monos (auto) Not Reportable Absolute Eos (auto) Not Reportable Neutrophils % Not Reportable Neutrophils % (Manual) 22.0 Lymphocytes % Not Reportable Lymphocytes % (Manual) 71.0 Monocytes % Not Reportable Monocytes % (Manual) 6.0 Eosinophils % Not Reportable Basophils % Not Reportable Band Neutrophils 1.0 Platelet Estimate Normal Normal RBC Morphology Normal rbc morph PT INR PTT (SP) Lactic Acid Magnesium 1.8 Creatine Kinase 117 CK-MB (CK-2) 5.0 H* CK-MB (CK-2) % Not Reportable Troponin I < 0.02 Amylase 60 Lipase 30 Urine Color Yellow Urine Appearance Clear Urine pH 6.5 Ur Specific [place] 1.010 Urine Protein Negative Urine Glucose (UA) Negative Urine Ketones Negative Urine Blood Negative Urine Nitrite Negative Urine Bilirubin Negative Urine Urobilinogen 0.2 Ur Leukocyte Esterase Trace H Urine RBC 0 Urine WBC 0 Ur Epithelial Cells 0-1 Urine Bacteria 0 11/07/17 11/07/17 21:35 21:35 WBC RBC Hgb Hct MCV MCH MCHC RDW Plt Count MPV Absolute Neuts (auto) Absolute Lymphs (auto) Absolute Monos (auto) Absolute Eos (auto) Neutrophils % Neutrophils % (Manual) Lymphocytes % Lymphocytes % (Manual) Monocytes % Monocytes % (Manual) Eosinophils % Basophils % Band Neutrophils Platelet Estimate Normal RBC Morphology PT 10.6 INR 0.940 PTT (SP) 31.3 Lactic Acid 1.1 Magnesium Creatine Kinase CK-MB (CK-2) CK-MB (CK-2) % Troponin I Amylase Lipase Urine Color Urine Appearance Urine pH Ur Specific [place] Urine Protein Urine Glucose (UA) Urine Ketones Urine Blood Urine Nitrite Urine Bilirubin Urine Urobilinogen Ur Leukocyte Esterase Urine RBC Urine WBC Ur Epithelial Cells Urine Bacteria acute abdominal series shows a large amount of constipation. No obstruction. No free air. Departure - Departure Clinical Impression: Constipation Qualifiers: Constipation type: unspecified constipation type Qualified Code(s): K59.00 - Constipation, unspecified Gastritis Qualifiers: Gastritis type: unspecified gastritis Chronicity: acute Gastritis bleeding: without bleeding Qualified Code(s): K29.00 - Acute gastritis without bleeding Disposition: Discharge to Home or Self Care Condition: Fair Departure Forms: ED Discharge - Pt. Copy, Patient Portal Self Enrollment Diet: regular diet - High-fiber low-fat Activity: increase activity as tolerated Referrals: Michael Murphy MD [Primary Care Provider] - 1-5 Days Home Medications: Ambulatory Orders Citalopram Hydrobromide [Celexa] 40 mg PO DAILY 11/01/15 Estrogens, Conjugated [Premarin] 6.25 mg PO DAILY 11/01/15 Celecoxib [CeleBREX] 100 mg PO BID 01/10/17 HYDROcodone 7.5MG/APAP 325MG [[place] 7.5/325] 1 tab PO TID 01/10/17 Ondansetron [Zofran Odt] 4 mg PO PRN 01/10/17 Tizanidine HCl [Zanaflex] 4 mg PO TID 01/10/17 Additional Instructions: the patient is a 52-year-old female presenting with abdominal pain that is most likely due to constipation. She is likely having a mild gastritis probably related to the constipation and the NSAID use. She needs to continue her stomach medications. She can sweet pickled fruit maker some Maalox and use as needed as well. She was given a dose of milk of magnesia here. She needs to take MiraLAX daily for the next 2 weeks. She needs to increase her fluid intake. She needs to increase her fiber intake. She needs to follow up with her primary care doctor in 2 or 3 days. ER warnings were given for any significant worsening.
[2017-11-07 22:42] VITALS: BP 138/91; TEMP 98
== END 2017-11-07 22:42 | disposition home or self-care (01) ==
LOC: ER 20:59
DX: K29.00 Acute gastritis without bleeding (principal); K59.00 Constipation, unspecified; J44.9 Chronic obstructive pulmonary disease, unspecified; K21.9 Gastro-esophageal reflux disease without esophagitis; R73.03 Prediabetes

== ENCOUNTER 2017-11-08 16:10 | Emergency (ER) | payer MEDICARE, MEDICAID ==
--- NOTE | 2017-11-08 16:59 | ED.PDOC ---
History of Present Illness - General Chief Complaint: General Stated Complaint: cough Time Seen by Provider: 11/08/17 16:56 Source: patient Exam Limitations: no limitations - History of Present Illness Initial Comments: Patient presents with three days of increasing cough productive of green sputum. She says she normally has clear nasal exudates but they have turned green as well. Her throat is "raw and sore". Her right ear is painful. She says that she has "holes" in the right eardrum. She denies fever/N/V/D. No other complaints. Smokes one ppd for 40 years with periods of quitting in between. Denies alcohol nor recreational drug use. Timing/Duration: other - 3 days Severity: mild Improving Factors: nothing Worsening Factors: nothing Associated Symptoms: denies symptoms Allergies/Adverse Reactions: Allergies NO KNOWN ALLERGY Allergy (Verified 11/18/16 12:11) Home Medications: Ambulatory Orders Estrogens, Conjugated [Premarin] 6.25 mg PO DAILY 11/01/15 Celecoxib [CeleBREX] 100 mg PO BID 01/10/17 Ondansetron [Zofran Odt] 4 mg PO PRN 01/10/17 Tizanidine HCl [Zanaflex] 4 mg PO TID 01/10/17 Amoxicillin & Pot Clavulanate [Augmentin Tab] 875 mg PO BID #20 tab 11/08/17 Bisacodyl [Dulcolax] 10 mg PO DAILY PRN 11/08/17 Meloxicam [Mobic] 15 mg PO DAILY 11/08/17 Ordsedpr-Ghxogixbn-Hl [Cortisporin 3.5-27116-5.5] 4 drop RIGHT_EAR TID #1 bottle 11/08/17 Pantoprazole Tablet [Protonix] 40 mg PO DAILY 11/08/17 Sertraline HCl [Zoloft] 100 mg PO BID 11/08/17 Review of Systems - Review of Systems Constitutional: States: no symptoms reported EENTM: States: see HPI Respiratory: States: see HPI Cardiology: States: no symptoms reported Gastrointestinal/Abdominal: States: no symptoms reported Genitourinary: States: no symptoms reported Musculoskeletal: States: no symptoms reported Skin: States: no symptoms reported Neurological: States: no symptoms reported Endocrine: States: no symptoms reported Hematologic/Lymphatic: States: no symptoms reported Past Medical History (General) - Patient Medical History Hx Seizures: No Hx Stroke: No Hx Dementia: No Hx Asthma: No Hx of COPD: Yes Hx Cardiac Disorders: No Hx Congestive Heart Failure: No Hx Pacemaker: No Hx Hypertension: No Hx Thyroid Disease: Yes Hx Diabetes: No Hx Gastroesophageal Reflux: Yes - multiple bowel Sx Hx Renal Disease: No Hx Cancer: Yes - skin Hx of HIV: No Hx Hepatitis C: Yes Hx MRSA: Yes - 2014 MRSA Source:: Wound Surgical History: Hysterectomy - Vaccination History Hx Tetanus, Diphtheria Vaccination: Yes Hx Influenza Vaccination: Yes Hx Pneumococcal Vaccination: Yes - Social History Hx Tobacco Use: Yes Hx Chewing Tobacco Use: No Hx Alcohol Use: No 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 Hx Substance Use Treatment: Yes Hx Depression: Yes - Female History Patient : No Family Medical History - Family History Mother Family History: No Known Living Status: Still Living Hx Family Hypertension: Yes Hx Family Cancer: Yes - multiple family members with melanoma Physical Exam - Physical Exam General Appearance: Alert Eye Exam: bilateral normal Ears, Nose, Throat: other - op is erythmatic with exudates. Right ear has greenish purulence and pulling the tragus is painful. There is right post- auricular LAD. 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 Copy, Patient Portal Self Enrollment Diet: resume usual diet Activity: increase activity as tolerated Referrals: Michael Murphy MD [Primary Care Provider] - 1-2 Weeks Prescriptions: Amoxicillin & Pot Clavulanate [Augmentin Tab] 875 mg PO BID #20 tab Xrtgzuza-Oktelcrhr-Jw [Cortisporin 3.5-33756-7.5] 4 drop RIGHT_EAR TID #1 bottle Home Medications: Ambulatory Orders Estrogens, Conjugated [Premarin] 6.25 mg PO DAILY 11/01/15 Celecoxib [CeleBREX] 100 mg PO BID 01/10/17 Ondansetron [Zofran Odt] 4 mg PO PRN 01/10/17 Tizanidine HCl [Zanaflex] 4 mg PO TID 01/10/17 Amoxicillin & Pot Clavulanate [Augmentin Tab] 875 mg PO BID #20 tab 11/08/17 Bisacodyl [Dulcolax] 10 mg PO DAILY PRN 11/08/17 Meloxicam [Mobic] 15 mg PO DAILY 11/08/17 Ucbtubyp-Thgbyokhl-Xg [Cortisporin 3.5-10090-5.5] 4 drop RIGHT_EAR TID #1 bottle 11/08/17 Pantoprazole Tablet [Protonix] 40 mg PO DAILY 11/08/17 Sertraline HCl [Zoloft] 100 mg PO BID 11/08/17
[2017-11-08 17:40] VITALS: BP 122/72; TEMP 98.8; O2SAT 96
== END 2017-11-08 17:25 | disposition home or self-care (01) ==
LOC: ER 16:10
DX: H65.91 Unspecified nonsuppurative otitis media, right ear (principal); H60.91 Unspecified otitis externa, right ear; F17.200 Nicotine dependence, unspecified, uncomplicated; J44.9 Chronic obstructive pulmonary disease, unspecified; E07.9 Disorder of thyroid, unspecified

== ENCOUNTER 2017-11-08 23:33 | Emergency (ER) | payer MEDICARE, MEDICAID ==
--- NOTE | 2017-11-08 23:46 | ED.PDOC ---
History of Present Illness - General Chief Complaint: Respiratory Problem Stated Complaint: cough Time Seen by Provider: 11/08/17 23:43 Source: patient Exam Limitations: no limitations - History of Present Illness Initial Comments: Patient presents for the third time today for the same complaint, cough. She was given a prescription earlier today and told to fill it. She was instructed that if she could not fill it today, then it would be ok for her to fill it in the morning and start taking it then. She was reminded of this upon presentation tonight and she became very angry and demanded that we cure her problem immediately. She was asked to follow the instructions given to her previously. Patient would not sit for an exam but instead she got up and left at that point. Vital signs were wnl. Allergies/Adverse Reactions: Allergies NO KNOWN ALLERGY Allergy (Verified 11/18/16 12:11) Home Medications: Ambulatory Orders Estrogens, Conjugated [Premarin] 6.25 mg PO DAILY 11/01/15 Celecoxib [CeleBREX] 100 mg PO BID 01/10/17 Ondansetron [Zofran Odt] 4 mg PO PRN 01/10/17 Tizanidine HCl [Zanaflex] 4 mg PO TID 01/10/17 Amoxicillin & Pot Clavulanate [Augmentin Tab] 875 mg PO BID #20 tab 11/08/17 Bisacodyl [Dulcolax] 10 mg PO DAILY PRN 11/08/17 Meloxicam [Mobic] 15 mg PO DAILY 11/08/17 Cycuaskb-Cswsntrnn-Pf [Cortisporin 3.5-38848-3.5] 4 drop RIGHT_EAR TID #1 bottle 11/08/17 Pantoprazole Tablet [Protonix] 40 mg PO DAILY 11/08/17 Sertraline HCl [Zoloft] 100 mg PO BID 11/08/17 Review of Systems - Review of Systems Unable to Obtain Due To: other - patient left AMA Past Medical History (General) - Patient Medical History Hx Seizures: No Hx Stroke: No Hx Dementia: No Hx Asthma: No Hx of COPD: Yes Hx Cardiac Disorders: No Hx Congestive Heart Failure: No Hx Pacemaker: No Hx Hypertension: No Hx Thyroid Disease: Yes Hx Diabetes: No Hx Gastroesophageal Reflux: Yes - multiple bowel Sx Hx Renal Disease: No Hx Cancer: Yes - skin Hx of HIV: No Hx Hepatitis C: Yes Hx MRSA: Yes - 2014 MRSA Source:: Wound - Vaccination History Hx Tetanus, Diphtheria Vaccination: Yes Hx Influenza Vaccination: Yes Hx Pneumococcal Vaccination: Yes - Social History Hx Tobacco Use: Yes Hx Chewing Tobacco Use: No Hx Alcohol Use: No 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 Hx Substance Use Treatment: Yes Hx Depression: Yes - Female History Patient : No Family Medical History - Family History Mother Family History: No Known Living Status: Still Living Hx Family Hypertension: Yes Hx Family Cancer: Yes - multiple family members with melanoma Physical Exam - Physical Exam General Appearance: Agitated Comments: Patient left AMA before exam. Departure - Departure Clinical Impression: Malingering Disposition: Left Against Medical Advice Departure Forms: ED Discharge - Pt. Copy, Patient Portal Self Enrollment Referrals: Michael Murphy MD [Primary Care Provider] - 1-2 Weeks Home Medications: Ambulatory Orders Estrogens, Conjugated [Premarin] 6.25 mg PO DAILY 11/01/15 Celecoxib [CeleBREX] 100 mg PO BID 01/10/17 Ondansetron [Zofran Odt] 4 mg PO PRN 01/10/17 Tizanidine HCl [Zanaflex] 4 mg PO TID 01/10/17 Amoxicillin & Pot Clavulanate [Augmentin Tab] 875 mg PO BID #20 tab 11/08/17 Bisacodyl [Dulcolax] 10 mg PO DAILY PRN 11/08/17 Meloxicam [Mobic] 15 mg PO DAILY 11/08/17 Bpalbwlk-Yiafprtfa-Mv [Cortisporin 3.5-00362-3.5] 4 drop RIGHT_EAR TID #1 bottle 11/08/17 Pantoprazole Tablet [Protonix] 40 mg PO DAILY 11/08/17 Sertraline HCl [Zoloft] 100 mg PO BID 11/08/17
[2017-11-08 23:47] VITALS: BP 149/76; TEMP 98; O2SAT 98
== END 2017-11-08 23:51 | disposition left against medical advice (07) ==
LOC: ER 23:33
DX: Z53.21 Procedure and treatment not carried out due to patient leaving prior to being seen by health care provider (principal); Z76.5 Malingerer [conscious simulation]

== ENCOUNTER → 2017-11-10 | Outpatient (CLI) | payer MEDICARE, MEDICAID ==
--- NOTE | 2017-11-10 17:14 | CT ---
EXAM DESCRIPTION: Abdomen/Pelvis w/wo Contrast CLINICAL HISTORY: LEFT LOWER QUADRANT ABDOMINAL TENDERNESS COMPARISON: None Available TECHNIQUE: Contiguous axial images of the abdomen and pelvis were obtained prior to and after the administration of intravenous contrast followed by reconstruction images.This exam was performed according to our departmental dose-optimization program, which includes automated exposure control, adjustment of the mA and/or kV according to patient size and/or use of iterative reconstruction technique. FINDINGS: There are postoperative changes. Sequela of surgery could explain soft tissue attenuation and gas in the posterior subcutaneous fat. The liver, spleen, pancreas and kidneys are within normal limits. There is no hydronephrosis. No definite renal or ureteral stone on either side. The gallbladder is unremarkable. Adrenal glands are within normal limits. Aorta is normal in caliber and tapering. No significant free fluid. No free air. No bowel obstruction. There is no stranding of the mesenteric fat. No evidence of periappendiceal inflammation. 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
== END ==
LOC: CT 16:01
PROVIDERS: ATTEND Nurse Practitioner Family
DX: R10.814 Left lower quadrant abdominal tenderness (principal); R10.84 Generalized abdominal pain

== ENCOUNTER → 2019-06-16 | Outpatient (CLI) | payer MEDICARE ==
--- NOTE | 2019-06-16 12:59 | RAD ---
EXAM DESCRIPTION: Hand,Left 3 Views CLINICAL HISTORY: PAIN IN LEFT HAND COMPARISON: None Available. TECHNIQUE: AP, LATERAL, AND OBLIQUE FINDINGS: The visualized bones appear poorly mineralized. No acute fracture or dislocation. Degenerative changes are identified in the first carpometacarpal and interphalangeal joints. The soft tissues appear grossly unremarkable. IMPRESSION: Degenerative changes are identified in the first carpometacarpal and interphalangeal joints. Electronically signed by: Joseline Liu MD 06/16/2019 12:58 PM CDT
--- NOTE | 2019-06-16 13:00 | RAD ---
EXAM DESCRIPTION: Hand,Right 3 Views CLINICAL HISTORY: PAIN IN RIGHT HAND COMPARISON: None Available. TECHNIQUE: AP, LATERAL, AND OBLIQUE FINDINGS: The visualized bones appear well mineralized. No acute fracture or dislocation.Degenerative changes are identified in the first carpometacarpal and interphalangeal joints. The soft tissues appear grossly unremarkable. IMPRESSION: Degenerative changes are identified in the first carpometacarpal and interphalangeal joints. Electronically signed by: Joseline Liu MD 06/16/2019 12:58 PM CDT
== END ==
LOC: RAD 08:13
PROVIDERS: ATTEND Orthopaedic Surgery
DX: M18.51 Other unilateral secondary osteoarthritis of first carpometacarpal joint, right hand (principal); M18.52 Other unilateral secondary osteoarthritis of first carpometacarpal joint, left hand

== ENCOUNTER → 2020-01-03 | Day surgery (SDC) | payer MEDICARE | LOC: AMB 05:39 | PROVIDERS: ATTEND Orthopaedic Surgery | DX: M65.341 Trigger finger, right ring finger (principal); Z53.8 Procedure and treatment not carried out for other reasons ==

== ENCOUNTER → 2020-03-02 | Outpatient (CLI) | payer MEDICARE ==
--- NOTE | 2020-03-02 10:29 | RAD ---
EXAM DESCRIPTION: Foot,Right 3 Views CLINICAL HISTORY: 54 years, Female, FOOT PAIN RIGHT COMPARISON: None TECHNIQUE: AP, lateral, and oblique views of the right foot FINDINGS: Degenerative narrowing of the first metatarsal phalangeal joint. Mild narrowing of the joints of the toes. No midfoot malalignment. Oblique and lateral views show intact talus and calcaneus. Mild narrowing of the ankle joint. IMPRESSION: Negative for fracture or dislocation. Electronically signed by: Shlomo Wagoner MD 03/02/2020 10:28 AM CDT
== END ==
LOC: RAD 07:34
PROVIDERS: ATTEND Orthopaedic Surgery
DX: M79.601 Pain in right arm (principal)

== ENCOUNTER → 2020-03-14 | Outpatient (CLI) | payer MEDICARE ==
--- NOTE | 2020-03-14 16:47 | MRI ---
EXAM DESCRIPTION: Lumbar Spine w/o Contrast : Magnetic Resonance Imaging. CLINICAL HISTORY: SCIATICA COMPARISON: MRI scan lumbar spine August 2009. TECHNIQUE: Multiplanar, multiple standard sequences, non contrast MRI, lumbar spine. FINDINGS: L5-S1: The disc is well visualized on axial T2 series 501, image 3. Significant disc space loss with diffuse moderate endplate reactive changes slightly more severe on the right than the left. Disc remnant posterior bulging in the midline. Moderate hypertrophic changes in the flavum ligaments and facet joints (canal elements). Moderate canal narrowing. Bilateral foraminal stenosis worse on the left. No significant change from the prior study. L4-L5: Disc desiccation with posterior disc space decreased minimally. Grade 1 anterolisthesis 2 mm. Posterior midline disc bulge. Moderate hypertrophic changes in the canal elements with AP canal diameter 5.5 mm. Bilateral subarticular recess narrowing versus stenosis. Moderate left foraminal narrowing and borderline right foraminal stenosis. This has progressed since the prior study. L3-L4: Disc desiccation posterior disc space loss and tiny posterior bulge. Hypertrophic changes in the canal elements. AP canal diameter 10 mm. Bilateral moderate foraminal narrowing. This has progressed since the prior study. L2-L3: Disc space preserved minimal disc desiccation. No posterior bulge. Hypertrophic changes in the posterior/canal elements with AP canal diameter 10 mm. Bilateral moderate to severe foraminal narrowing. Unfavorable interval change since the prior study. L1-L2: Disc desiccation minimal posterior disc space loss. Anterior disc bulge and spur formation. Hypertrophic changes in the canal elements. AP canal diameter 11 mm. Mild right foraminal narrowing and moderate left foraminal narrowing. T12-L1: Disc desiccation minimal disc space loss anterior and posterior bulging. 3 mm grade 1 retrolisthesis. Minimal hypertrophic changes in the canal elements. Bilateral narrowing of the subarticular recesses. AP canal diameter 12 mm. Moderate left foraminal narrowing and mild right foraminal narrowing. L1-L3 dextroscoliosis. This is progressed since the prior study Paravertebral soft tissues paraspinal muscle atrophy. Distal cord normal signal and caliber. Otherwise normal marrow signal in the remaining vertebral bodies and the posterior elements. Vertebral bodies are not compressed at any level. IMPRESSION: 1. Degenerative scoliosis, multiple levels of disc desiccation and spondylosis, and m multilevel degenerative hypertrophy of the flavum ligaments and facet joints. 2. Marked disc space loss and spondylosis at L5-S1 with bilateral foraminal stenosis. Stable from the prior study. 3. Posterior disc bulge and hypertrophic canal elements resulting in borderline mild central canal stenosis at L3-4. Progressed since the prior study. 4. Multifactorial severe central canal stenosis L4-L5. Bilateral subarticular recess stenosis and narrowing. Borderline right foraminal stenosis. Progressed since the prior study. 5. Multifactorial borderline mild central canal stenosis at L2-L3. Progressed since the prior study. Electronically signed by: Zhou Alan MD 03/14/2020 4:46 PM CDT
== END ==
LOC: MRI 14:01
PROVIDERS: ATTEND Orthopaedic Surgery
DX: M54.31 Sciatica, right side (principal); M41.9 Scoliosis, unspecified; M51.86 Other intervertebral disc disorders, lumbar region; M48.061 Spinal stenosis, lumbar region without neurogenic claudication; M48.07 Spinal stenosis, lumbosacral region; M47.897 Other spondylosis, lumbosacral region; M24.28 Disorder of ligament, vertebrae

== ENCOUNTER 2020-07-31 01:37 | Emergency (ER) | payer MEDICARE, MEDICAID ==
[2020-07-31] MEDS ORDERED: KETOROLAC TROMETHAMINE INJ 60 MG/2 ML VIAL IM ONE (02:04)
[2020-07-31] MEDS ORDERED: tiZANidine 4 MG TAB PO ONE (02:04)
[2020-07-31] MEDS ORDERED: GABAPENTIN 300 MG CAP PO ONE (02:04)
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
[2020-07-31 03:04] VITALS: BP 145/93; TEMP 97.5; O2SAT 97
== END 2020-07-31 03:02 | disposition home or self-care (01) ==
LOC: ER 01:37
DX: M54.2 Cervicalgia (principal); G89.29 Other chronic pain; F15.120 Other stimulant abuse with intoxication, uncomplicated; M54.12 Radiculopathy, cervical region; M62.838 Other muscle spasm; F32.9 Major depressive disorder, single episode, unspecified; J44.9 Chronic obstructive pulmonary disease, unspecified; E78.00 Pure hypercholesterolemia, unspecified; E07.9 Disorder of thyroid, unspecified; K21.9 Gastro-esophageal reflux disease without esophagitis; Z87.891 Personal history of nicotine dependence; Z85.828 Personal history of other malignant neoplasm of skin; Z86.19 Personal history of other infectious and parasitic diseases; Z79.899 Other long term (current) drug therapy
CPT/HCPCS: 80307; 81001; 87086; J1885

== ENCOUNTER → 2020-08-10 | Outpatient (CLI) | payer MEDICARE, MEDICAID ==
--- NOTE | 2020-08-12 10:35 | RAD ---
EXAM: Shoulder,Right 2 or More Views CLINICAL HISTORY: pain in right shoulder COMPARISON STUDY: Right shoulder x-rays from July 28, 2017 TECHNICAL: Internal rotation, external rotation, scapular and axillary images of the right shoulder. FINDINGS: No fracture and no dislocation. No significant joint space loss. Small periarticular osteophytes are present at the glenohumeral joint. There are mild degenerative changes of the acromioclavicular joint. The limited view of the right chest is negative. IMPRESSION: Mild osteoarthritic changes of the right glenohumeral joint and right acromioclavicular joint. Electronically signed by: Chris Fabian MD 08/12/2020 10:33 AM [facility]
== END ==
LOC: RAD 10:18
PROVIDERS: ATTEND Orthopaedic Surgery
DX: M19.011 Primary osteoarthritis, right shoulder (principal)

== ENCOUNTER → 2020-08-28 | Outpatient (CLI) | payer MEDICARE, MEDICAID ==
--- NOTE | 2020-08-29 13:32 | RAD ---
EXAM DESCRIPTION: Cervical Spine, 2-3 Views CLINICAL HISTORY: 55 years Female, CERVIGALGIA COMPARISON: CT March 31, 2016 FINDINGS: 3 views of the cervical spine were obtained. Postoperative changes related to previous ACDF at C3-4 and C6-7. Backing out of the left side fixation screw at C6, unchanged from the prior CT. Surgical hardware is otherwise unremarkable. Grade 1 anterolisthesis at C2-3 is new from the prior CT. No vertebral body fracture. Disc space narrowing at C6-7, stable. Anterior osteophytes at C5-6 and C6-7 also stable. The spinous processes are intact. No prevertebral soft tissue swelling or gas. IMPRESSION: Postoperative changes at C3-4 and C6-7 as detailed above, unchanged from March,. Grade 1 anterolisthesis at C2-3, new from the prior CT. Moderate multilevel degenerative changes including degenerative disc disease also detailed above and also stable. 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
--- NOTE | 2020-08-29 13:41 | CT ---
EXAM DESCRIPTION: Cervical Spine CLINICAL HISTORY: CERVICALGIA COMPARISON: March 31, 2016 TECHNIQUE: CT of the cervical spine was performed without IV contrast. This exam was performed according to our departmental dose-optimization program, which includes automated exposure control, adjustment of the mA and/or kV according to patient size and/or use of iterative reconstruction technique. FINDINGS: Again seen are postoperative changes related to previous ACDF at C3-4 and C6-7, backing out of the left-sided station screw at C6, stable. No new hardware complication. No vertebral body fracture. C2-3: Grade 1 anterolisthesis, new from the prior exam. Bilateral facet joint degeneration, also new. C3-4: Uncomplicated postoperative changes with degenerative changes and fusion of the left-sided facet joint, stable. Mild bilateral neural foraminal stenosis, worse on the left side and is stable. Mild central canal stenosis, stable. C4-5: Disc space narrowing with posterior disc bulging and mild bilateral facet joint degeneration resulting in mild central canal and mild to moderate bilateral neural foraminal stenosis, stable. C5-6: Disc space narrowing with broad-based posterior discal osteophytic ridging, bilateral uncovertebral and facet joint hypertrophy resulting in moderate central canal and [id number]-am-[id number] bilateral neural foraminal stenosis, worse on the right side. Findings at this level are also stable. C6-7: Postoperative changes with bilateral facet joint degeneration resulting in mild central canal and mild bilateral neural foraminal stenosis, stable. C7-T1: Disc space narrowing with left-sided facet joint degeneration, no central canal or neural foraminal stenosis. Findings at this level also stable. IMPRESSION: Postoperative changes at C3-4 and C6-7, stable. New bilateral facet joint degeneration at C2-3 with grade 1 anterolisthesis at the same level, also new. Moderate multilevel degenerative changes including degenerative disc and facet joint disease resulting central canal and neural foraminal stenosis elsewhere in the cervical spine, stable. Electronically signed by: Luis Miguel Ha MD 08/29/2020 1:39 PM [facility]
--- NOTE | 2020-08-29 13:43 | RAD ---
EXAM DESCRIPTION: Cervical Spine,Flex/Ext CLINICAL HISTORY: 55 years Female, CERVICALGIA COMPARISON: None. FINDINGS: Flexion and extension views of the cervical spine show grade 1 anterolisthesis at C2-3, slightly increased on the flexion view (6 mm) compared to the extension view (4 mm). Postoperative changes elsewhere, no additional dynamic instability. IMPRESSION: Grade 1 anterolisthesis at C2-3 with mild dynamic instability at the same level. Electronically signed by: Luis Miguel Ha MD 08/29/2020 1:42 PM [facility]
== END ==
LOC: CT 14:56
PROVIDERS: ATTEND Nurse Practitioner Family
DX: M48.00 Spinal stenosis, site unspecified (principal); M50.323 Other cervical disc degeneration at C6-C7 level; M43.12 Spondylolisthesis, cervical region; M47.892 Other spondylosis, cervical region; M48.03 Spinal stenosis, cervicothoracic region; Z98.1 Arthrodesis status

== ENCOUNTER → 2020-09-19 | Outpatient (CLI) | payer MEDICARE, MEDICAID ==
--- NOTE | 2020-09-19 15:49 | US ---
PROVIDED CLINICAL HISTORY/REASON FOR EXAM: SPINAL STENOSIS COMPARISON STUDY: None available. TECHNIQUE: Venous duplex examination using B-mode, color flow and spectral Doppler was performed. FINDINGS: Bilateral lower extremity grayscale and Doppler venous ultrasound demonstrates normal luminal compressibility and color flow without evidence of intraluminal thrombus of the common femoral vein, femoral vein, and popliteal vein.. The visualized calf veins are unremarkable. IMPRESSION: No evidence of DVT within venous structures of the bilateral lower extremities. 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
== END ==
LOC: US 15:08
PROVIDERS: ATTEND Neurological Surgery
DX: R79.89 Other specified abnormal findings of blood chemistry (principal); M48.00 Spinal stenosis, site unspecified; M47.10 Other spondylosis with myelopathy, site unspecified; M47.12 Other spondylosis with myelopathy, cervical region; M48.02 Spinal stenosis, cervical region